=== PATIENT | male | born 1985 | race Caucasian/White ===

== ENCOUNTER 2021-06-17 17:23 | Inpatient (IN) ==
[2021-06-17] MEDS ORDERED: diazePAM 10 MG/2 ML SYRINGE IVP ONE (17:41)
[2021-06-17] MEDS ORDERED: Ondansetron 4 MG/2 ML VIAL IVP PRN (17:42)
[2021-06-17] MEDS ORDERED: 0.9 % Sodium Chloride 1,000 ML IVC ONE (17:42)
[2021-06-17] MEDS ORDERED: Naloxone 0.4 MG/ML INJ IVP PRN (17:42)
[2021-06-17] MEDS ORDERED: diazePAM 10 MG/2 ML SYRINGE IVP PRN ×4 (17:43)
[2021-06-17 18:06] LABS: Basophils % 0.3 %; Eosinophils % 0.4 %; Hematocrit 30.9 % (37.5-50.1); Hemoglobin 11.3 g/dL (12.9-16.9); Immature Granulocytes % 0.5 % (0-4); Lymphocytes # 1.2 K/mcL (0.6-4.6); Lymphocytes % 11.4 %; Mean Corpuscular HGB Conc 36.6 g/dL (31.6-35.5); Mean Corpuscular Volume 101.3 fL (83.0-100.0); Mean Platelet Volume 9.8 fL (9.4-12.4); Monocytes % 9.3 %; Neutrophils # 8.1 K/mcL (1.6-8.9); Platelet Count 111 K/mcL (140-400); Red Blood Count 3.05 M/mcL (4.19-5.50); Red Cell Distribution Width 15.7 % (11.5-14.5); Segmented Neutrophils % 78.1 %; White Blood Count 10.3 K/mcL (4.3-11.1)
[2021-06-17 18:26] LABS: Alanine Aminotransferase 28 Units/L (7-52); Albumin 2.2 g/dL (3.5-5.7); Albumin/Globulin Ratio 0.4 (1.1-2.2); Alkaline Phosphatase 102 Units/L (34-104); Aspartate Amino Transferase 149 Units/L (13-39); BUN/Creatinine Ratio 9 (6-26); Bilirubin,Total 16.1 mg/dL (0.3-1.0); Blood Urea Nitrogen 8 mg/dL (6-20); Calcium 8.3 mg/dL (8.6-10.3); Carbon Dioxide 32 mEq/L (23-29); Chloride 89 mEq/L (98-107); Globulin 5.9 g/dL (2.4-3.5); Glucose 107 mg/dL (70-105); Osmolality,Calculated 271 (280-300); Potassium 3.1 mEq/L (3.5-5.1); Sodium 131 mEq/L (136-145); Total Protein 8.1 g/dL (6.4-8.9); eGFR For African Americans > 60 (> 60); eGFR For Non-African Americans > 60 (> 60)
[2021-06-17 19:25] LABS: INR 2.7; Prothrombin Time 30.1 Seconds (9.4-12.1)
[2021-06-17 20:05] LABS: Hepatitis B Surface Antigen Nonreactive (Nonreactive)
[2021-06-17 20:37] LABS: Hepatitis A Antibody IgM Nonreactive (Nonreactive); Hepatitis C Virus Antibody Nonreactive (Nonreactive)
[2021-06-17 20:38] LABS: Hepatitis B Core IgM Nonreactive (Nonreactive)
[2021-06-17] MEDS: Thiamine (B-1) 100 MG, Folic Acid 1 MG, MVI, adult with vitamin K 10 ML in 0.9 % Sodi... IVPB SCH (20:58)
[2021-06-17] MEDS ORDERED: Potassium Chloride 20 MEQ, Lidocaine 1% 2 ML in 0.9 % Sodium Chloride 250 ML IVPB ONE (21:10)
[2021-06-17 21:44] LABS: Amorphous Sediment,Urine Few per hpf (None-Few); Bacteria,Urine Few per hpf (None-Few); Clarity,Urine Ex.Turbid (Clear); Color,Urine Dark-Orange (Yellow); Hyaline Casts,Urine Many per lpf (None Seen); Mucus,Urine Many per lpf (None-Few); RBC,Urine 0-3 per hpf (0-3); Renal Epithelial Cells,Urine Moderate per hpf (None-Few); Squamous Epithelial Cell,Urine Moderate per hpf (None-Few); WBC,Urine 30-50 per hpf (0-3)
[2021-06-17] MEDS: 0.9 % Sodium Chloride 1,000 ML IVC SCH (22:00)
[2021-06-17] MEDS: Pantoprazole 40 MG VIAL IVP SCH (22:09)
[2021-06-18 05:25] LABS: Basophils % 0.5 %; Eosinophils # 0.1 K/mcL (0.0-0.6); Eosinophils % 0.6 %; Hemoglobin 10.2 g/dL (12.9-16.9); Immature Granulocytes % 0.5 % (0-4); Lymphocytes % 11.9 %; Mean Corpuscular HGB Conc 36.4 g/dL (31.6-35.5); Mean Corpuscular Hemoglobin 37.1 pg (28.0-33.3); Mean Corpuscular Volume 101.8 fL (83.0-100.0); Mean Platelet Volume 9.9 fL (9.4-12.4); Monocytes # 0.8 K/mcL (0.0-1.3); Monocytes % 9.3 %; Neutrophils # 6.3 K/mcL (1.6-8.9); Platelet Count 111 K/mcL (140-400); Red Blood Count 2.75 M/mcL (4.19-5.50); Segmented Neutrophils % 77.2 %; White Blood Count 8.1 K/mcL (4.3-11.1)
[2021-06-18 05:40] LABS: Albumin 1.9 g/dL (3.5-5.7); Albumin/Globulin Ratio 0.4 (1.1-2.2); Bilirubin,Direct 8.1 mg/dL (0.0-0.2); Bilirubin,Total 15.1 mg/dL (0.3-1.0); Globulin 5.3 g/dL (2.4-3.5); Total Protein 7.2 g/dL (6.4-8.9)
[2021-06-18 05:50] LABS: BUN/Creatinine Ratio 11 (6-26); Blood Urea Nitrogen 8 mg/dL (6-20); Calcium 7.7 mg/dL (8.6-10.3); Carbon Dioxide 28 mEq/L (23-29); Chloride 94 mEq/L (98-107); Glucose 78 mg/dL (70-105); Magnesium 1.2 mg/dL (1.6-2.6); Osmolality,Calculated 271 (280-300); Phosphorous 2.8 mg/dL (2.7-4.5); Potassium 3.2 mEq/L (3.5-5.1); Sodium 132 mEq/L (136-145); eGFR For African Americans > 60 (> 60); eGFR For Non-African Americans > 60 (> 60)
[2021-06-18] MEDS: Nicotine 2 MG GUM BC PRN ×3 (06:37→21:48)
[2021-06-18] MEDS: Pantoprazole 40 MG VIAL IVP SCH ×2 (06:37→18:00)
[2021-06-18] MEDS: 0.9 % Sodium Chloride 1,000 ML IVC SCH ×3 (07:29→18:01)
[2021-06-18] MEDS ORDERED: Potassium Chloride 40 MEQ, Lidocaine 1% 2 ML in 0.9 % Sodium Chloride 500 ML IVPB ONE (07:57)
[2021-06-18] MEDS ORDERED: Thiamine (B-1) 200 MG in 0.9 % Sodium Chloride 50 ML IVPB SCH (09:00)
[2021-06-18] MEDS ORDERED: Folic Acid 1 MG in 0.9 % Sodium Chloride 50 ML IVPB SCH (09:00)
[2021-06-18] MEDS: diazePAM 10 MG/2 ML SYRINGE IVP PRN (10:41)
[2021-06-18] MEDS ORDERED: Lidocaine -MPF 2% 2 ML VIAL ONE (12:40)
[2021-06-18] MEDS ORDERED: *HR* Propofol 200 MG/20 ML VIAL IVP ONE (12:40)
[2021-06-18] MEDS ORDERED: *HR* Succinylcholine 200 MG/10 ML VIAL IVP ONE (13:02)
[2021-06-18] MEDS ORDERED: *HR* Midazolam HCl 2 MG/2 ML VIAL ONE (13:02)
[2021-06-18] MEDS ORDERED: Ondansetron 4 MG/2 ML VIAL ONE (13:03)
[2021-06-18] MEDS ORDERED: *HR* FentaNYL (PF) 100 MCG/2 ML VIAL ONE (13:04)
[2021-06-18] MEDS ORDERED: MethylPREDNISolone 40 MG/ML VIAL IVP SCH (13:15)
[2021-06-18 13:16] LABS: Clarity,Urine Hazy (Clear); Color,Urine Dark Brown (Yellow)
[2021-06-18 13:20] LABS: Squamous Epithelial Cell,Urine Few per hpf (None-Few)
[2021-06-18 13:21] LABS: Mucus,Urine Few per lpf (None-Few)
[2021-06-18 13:25] LABS: Amorphous Sediment,Urine Few per hpf (None-Few)
[2021-06-18] MEDS ORDERED: *HR* Midazolam HCl 5 MG/5 ML VIAL IVP ONE (13:27)
[2021-06-18] MEDS: Albumin 25% 25gram/100mL 25 GM/100 ML IV.SOLN IVPB SCH (14:58)
[2021-06-18] MEDS: methylPREDNISolone 125 MG/2 ML VIAL IVP SCH (16:35)
[2021-06-18 16:41] LABS: Alanine Aminotransferase 27 Units/L (7-52); Albumin 2.1 g/dL (3.5-5.7); Albumin/Globulin Ratio 0.4 (1.1-2.2); Alkaline Phosphatase 90 Units/L (34-104); Aspartate Amino Transferase 148 Units/L (13-39); BUN/Creatinine Ratio 11 (6-26); Bilirubin,Total 16.7 mg/dL (0.3-1.0); Blood Urea Nitrogen 10 mg/dL (6-20); Carbon Dioxide 25 mEq/L (23-29); Chloride 95 mEq/L (98-107); Globulin 5.4 g/dL (2.4-3.5); Glucose 142 mg/dL (70-105); Osmolality,Calculated 271 (280-300); Sodium 130 mEq/L (136-145); Total Protein 7.5 g/dL (6.4-8.9); eGFR For African Americans > 60 (> 60); eGFR For Non-African Americans > 60 (> 60)
[2021-06-18] MEDS: Thiamine (B-1) 100 MG, Folic Acid 1 MG, MVI, adult with vitamin K 10 ML in 0.9 % Sodi... IVPB SCH (18:00)
[2021-06-19] MEDS: Albumin 25% 25gram/100mL 25 GM/100 ML IV.SOLN IVPB SCH ×2 (01:48→11:38)
[2021-06-19 02:39] LABS: Basophils % 0.1 %; Hematocrit 30.2 % (37.5-50.1); Hemoglobin 10.6 g/dL (12.9-16.9); Immature Granulocytes % 0.2 % (0-4); Lymphocytes # 0.4 K/mcL (0.6-4.6); Lymphocytes % 4.2 %; Mean Corpuscular HGB Conc 35.1 g/dL (31.6-35.5); Mean Corpuscular Hemoglobin 36.4 pg (28.0-33.3); Mean Corpuscular Volume 103.8 fL (83.0-100.0); Mean Platelet Volume 9.6 fL (9.4-12.4); Monocytes # 0.2 K/mcL (0.0-1.3); Monocytes % 2.2 %; Neutrophils # 8.7 K/mcL (1.6-8.9); Platelet Count 117 K/mcL (140-400); Red Blood Count 2.91 M/mcL (4.19-5.50); Red Cell Distribution Width 15.9 % (11.5-14.5); Segmented Neutrophils % 93.3 %; White Blood Count 9.4 K/mcL (4.3-11.1)
[2021-06-19 02:58] LABS: Alanine Aminotransferase 29 Units/L (7-52); Albumin 2.2 g/dL (3.5-5.7); Albumin/Globulin Ratio 0.4 (1.1-2.2); Alkaline Phosphatase 87 Units/L (34-104); Aspartate Amino Transferase 141 Units/L (13-39); BUN/Creatinine Ratio 12 (6-26); Bilirubin,Total 16.9 mg/dL (0.3-1.0); Blood Urea Nitrogen 10 mg/dL (6-20); Carbon Dioxide 25 mEq/L (23-29); Chloride 97 mEq/L (98-107); Globulin 5.4 g/dL (2.4-3.5); Glucose 143 mg/dL (70-105); Osmolality,Calculated 276 (280-300); Potassium 3.5 mEq/L (3.5-5.1); Sodium 132 mEq/L (136-145); Total Protein 7.6 g/dL (6.4-8.9); eGFR For African Americans > 60 (> 60); eGFR For Non-African Americans > 60 (> 60)
[2021-06-19] MEDS: Nicotine 2 MG GUM BC PRN (03:59)
[2021-06-19] MEDS: 0.9 % Sodium Chloride 1,000 ML IVC SCH ×4 (04:00→20:54)
[2021-06-19] MEDS: diazePAM 10 MG/2 ML SYRINGE IVP PRN (04:01)
[2021-06-19] MEDS: Pantoprazole 40 MG VIAL IVP SCH ×2 (05:07→16:45)
[2021-06-19] MEDS: methylPREDNISolone 125 MG/2 ML VIAL IVP SCH (08:26)
[2021-06-19] MEDS ORDERED: MethylPREDNISolone 40 MG/ML VIAL IVP STA (09:30)
[2021-06-19] MEDS: Thiamine (B-1) 100 MG, Folic Acid 1 MG, MVI, adult with vitamin K 10 ML in 0.9 % Sodi... IVPB SCH (16:45)
[2021-06-20] MEDS: Albumin 25% 25gram/100mL 25 GM/100 ML IV.SOLN IVPB SCH ×2 (03:02→11:54)
[2021-06-20 03:47] LABS: Alanine Aminotransferase 34 Units/L (7-52); Albumin 2.3 g/dL (3.5-5.7); Albumin/Globulin Ratio 0.5 (1.1-2.2); Aspartate Amino Transferase 126 Units/L (13-39); BUN/Creatinine Ratio 15 (6-26); Bilirubin,Total 14.3 mg/dL (0.3-1.0); Blood Urea Nitrogen 10 mg/dL (6-20); Calcium 8.4 mg/dL (8.6-10.3); Carbon Dioxide 24 mEq/L (23-29); Chloride 103 mEq/L (98-107); Globulin 5.1 g/dL (2.4-3.5); Glucose 138 mg/dL (70-105); Osmolality,Calculated 283 (280-300); Potassium 3.6 mEq/L (3.5-5.1); Sodium 136 mEq/L (136-145); Total Protein 7.4 g/dL (6.4-8.9); eGFR For African Americans > 60 (> 60); eGFR For Non-African Americans > 60 (> 60)
[2021-06-20 04:01] LABS: Alkaline Phosphatase 92 Units/L (34-104)
[2021-06-20] MEDS: Nicotine 2 MG GUM BC PRN ×2 (04:50→21:46)
[2021-06-20] MEDS: Pantoprazole 40 MG VIAL IVP SCH ×2 (04:51→16:42)
[2021-06-20] MEDS: 0.9 % Sodium Chloride 1,000 ML IVC SCH ×3 (04:51→21:45)
[2021-06-20] MEDS: methylPREDNISolone 125 MG/2 ML VIAL IVP SCH (07:34)
[2021-06-20 10:27] LABS: Basophils % 0.1 %; Hematocrit 28.9 % (37.5-50.1); Immature Granulocytes % 0.7 % (0-4); Lymphocytes # 0.4 K/mcL (0.6-4.6); Mean Corpuscular HGB Conc 34.6 g/dL (31.6-35.5); Mean Corpuscular Hemoglobin 36.4 pg (28.0-33.3); Mean Corpuscular Volume 105.1 fL (83.0-100.0); Mean Platelet Volume 10.1 fL (9.4-12.4); Monocytes # 0.8 K/mcL (0.0-1.3); Monocytes % 5.8 %; Neutrophils # 12.4 K/mcL (1.6-8.9); Platelet Count 163 K/mcL (140-400); Red Blood Count 2.75 M/mcL (4.19-5.50); Red Cell Distribution Width 16.5 % (11.5-14.5); Segmented Neutrophils % 90.4 %; White Blood Count 13.7 K/mcL (4.3-11.1)
[2021-06-20] MEDS: Folic Acid 1 MG TABLET PO SCH (10:40)
[2021-06-20] MEDS: Vitamin B Complex/Vit C/Vit E 1 EACH TABLET PO SCH (10:40)
[2021-06-20] MEDS: Thiamine (B-1) 100 MG TABLET PO SCH (10:41)
[2021-06-20 11:41] LABS: INR 2.8; Prothrombin Time 31.1 Seconds (9.4-12.1)
[2021-06-21] MEDS: Albumin 25% 25gram/100mL 25 GM/100 ML IV.SOLN IVPB SCH ×2 (01:09→11:21)
[2021-06-21 05:42] LABS: Basophils % 0.1 %; Hematocrit 29.9 % (37.5-50.1); Hemoglobin 10.6 g/dL (12.9-16.9); Lymphocytes # 0.5 K/mcL (0.6-4.6); Lymphocytes % 3.7 %; Mean Corpuscular HGB Conc 35.5 g/dL (31.6-35.5); Mean Corpuscular Hemoglobin 37.1 pg (28.0-33.3); Mean Corpuscular Volume 104.5 fL (83.0-100.0); Mean Platelet Volume 9.9 fL (9.4-12.4); Monocytes # 1.1 K/mcL (0.0-1.3); Monocytes % 7.7 %; Neutrophils # 12.7 K/mcL (1.6-8.9); Platelet Count 189 K/mcL (140-400); Red Blood Count 2.86 M/mcL (4.19-5.50); Red Cell Distribution Width 16.8 % (11.5-14.5); Segmented Neutrophils % 87.5 %
[2021-06-21 05:53] LABS: INR 2.4; Prothrombin Time 27.3 Seconds (9.4-12.1)
[2021-06-21] MEDS: Pantoprazole 40 MG VIAL IVP SCH (05:56)
[2021-06-21 05:58] LABS: Alanine Aminotransferase 48 Units/L (7-52); Albumin/Globulin Ratio 0.7 (1.1-2.2); Alkaline Phosphatase 89 Units/L (34-104); Aspartate Amino Transferase 130 Units/L (13-39); BUN/Creatinine Ratio 19 (6-26); Bilirubin,Total 14.5 mg/dL (0.3-1.0); Blood Urea Nitrogen 13 mg/dL (6-20); Calcium 9.1 mg/dL (8.6-10.3); Carbon Dioxide 23 mEq/L (23-29); Chloride 104 mEq/L (98-107); Globulin 4.6 g/dL (2.4-3.5); Glucose 126 mg/dL (70-105); Osmolality,Calculated 282 (280-300); Potassium 3.7 mEq/L (3.5-5.1); Sodium 135 mEq/L (136-145); Total Protein 7.6 g/dL (6.4-8.9); eGFR For African Americans > 60 (> 60); eGFR For Non-African Americans > 60 (> 60)
[2021-06-21 06:00] LABS: Albumin 3.1 g/dL (3.5-5.7); Albumin/Globulin Ratio 0.7 (1.1-2.2); Bilirubin,Direct 7.9 mg/dL (0.0-0.2); Bilirubin,Indirect 6.5 mg/dL (0.0-1.0); Bilirubin,Total 14.4 mg/dL (0.3-1.0); Globulin 4.5 g/dL (2.4-3.5); Total Protein 7.6 g/dL (6.4-8.9)
[2021-06-21 06:01] LABS: White Blood Count 14.5 K/mcL (4.3-11.1)
[2021-06-21 06:47] VITALS: BP 139/95; PULSE 104; TEMP 97.8; O2SAT 95
[2021-06-21] MEDS: Vitamin B Complex/Vit C/Vit E 1 EACH TABLET PO SCH (07:56)
[2021-06-21] MEDS: Thiamine (B-1) 100 MG TABLET PO SCH (07:56)
[2021-06-21] MEDS: 0.9 % Sodium Chloride 1,000 ML IVC SCH (07:56)
[2021-06-21] MEDS: Folic Acid 1 MG TABLET PO SCH (07:56)
[2021-06-21] MEDS: methylPREDNISolone 125 MG/2 ML VIAL IVP SCH (07:56)
== END 2021-06-21 13:26 | disposition home or self-care (01) | DRG 432 ==
LOC: 3BNU 17:23 → EMEROOARM 17:23 → SUATTDRO 19:57 → 3BNU 20:25
PROVIDERS: ADMIT Student in an Organized Health Care Education/Training Program; ATTEND Family Medicine

== ENCOUNTER 2021-07-20 15:17 | Inpatient (IN) ==
[2021-07-20] MEDS ORDERED: Isovue-370 500 ML BOTTLE IVP ONE (16:03)
[2021-07-20 16:38] LABS: INR 2.5; Prothrombin Time 28.1 Seconds (9.4-12.1)
[2021-07-20 16:40] LABS: Activated Partial Thrombo Time 42.4 Seconds (26.0-36.0)
[2021-07-20 16:54] LABS: Basophils % 0.2 %; Eosinophils % 0.2 %; Immature Granulocytes % 0.7 % (0-4); Mean Platelet Volume 10.1 fL (9.4-12.4); Monocytes % 5.6 %; Red Cell Distribution Width 13.9 % (11.5-14.5)
[2021-07-20 16:56] LABS: Hematocrit 36.4 % (37.5-50.1); Immature Platelets 4.6 % (1.1-6.1); Lymphocytes # 0.9 K/mcL (0.6-4.6); Lymphocytes % 4.5 %; Mean Corpuscular HGB Conc 35.7 g/dL (31.6-35.5); Mean Corpuscular Volume 103.7 fL (83.0-100.0); Monocytes # 1.1 K/mcL (0.0-1.3); Neutrophils # 17.1 K/mcL (1.6-8.9); Platelet Count 129 K/mcL (140-400); Red Blood Count 3.51 M/mcL (4.19-5.50); Segmented Neutrophils % 88.8 %; White Blood Count 19.2 K/mcL (4.3-11.1)
[2021-07-20 17:10] LABS: Alanine Aminotransferase 34 Units/L (7-52); Albumin 2.3 g/dL (3.5-5.7); Albumin/Globulin Ratio 0.5 (1.1-2.2); Alkaline Phosphatase 145 Units/L (34-104); Aspartate Amino Transferase 83 Units/L (13-39); BUN/Creatinine Ratio 14 (6-26); Bilirubin,Direct 6.3 mg/dL (0.0-0.2); Bilirubin,Indirect 5.8 mg/dL (0.0-1.0); Bilirubin,Total 12.1 mg/dL (0.3-1.0); Blood Urea Nitrogen 10 mg/dL (6-20); C-Reactive Protein 96 mg/L (Less than 10); Calcium 7.8 mg/dL (8.6-10.3); Carbon Dioxide 23 mEq/L (23-29); Chloride 96 mEq/L (98-107); Ethanol < 10 mg/dL (Less than 10); Ferritin 909 ng/mL (20-250); Globulin 4.5 g/dL (2.4-3.5); Glucose 101 mg/dL (70-105); Lipase 82 Units/L (11-82); Magnesium 1.7 mg/dL (1.6-2.6); Osmolality,Calculated 267 (280-300); Potassium 3.3 mEq/L (3.5-5.1); Sodium 129 mEq/L (136-145); Total Protein 6.8 g/dL (6.4-8.9); eGFR For African Americans > 60 (> 60); eGFR For Non-African Americans > 60 (> 60)
[2021-07-20 17:11] LABS: Troponin I 0.06 ng/mL (< 0.04)
[2021-07-20 17:52] LABS: Amorphous Sediment,Urine Few per hpf (None-Few); Bilirubin,Urine Large (Negative); Blood,Urine Small (Negative); Clarity,Urine Turbid (Clear); Color,Urine Dark-Orange (Yellow); Glucose,Urine (UA) Normal (Normal); Hyaline Casts,Urine Few per lpf (None Seen); Ketones,Urine Negative (Negative); Leukocyte Esterase,Urine Negative (Negative); Mucus,Urine Few per lpf (None-Few); Nitrite,Urine Negative (Negative); Protein,Urine 50 mg/dL (Neg-Trace); RBC,Urine 0-3 per hpf (0-3); Specific Gravity,Urine > 1.030 (1.010-1.025); Squamous Epithelial Cell,Urine Few per hpf (None-Few)
[2021-07-20] MEDS ORDERED: 0.9 % Sodium Chloride 500 ML IVC ONE (17:54)
[2021-07-20] MEDS ORDERED: Piperacillin/Tazobactam 3.375 GM in Water for inj. (sterile) 20 ML IVP ONE ×2 (17:54→18:06)
[2021-07-20] MEDS ORDERED: Vancomycin 1,500 MG/265 ML IV.SOLN IVPB ONE (18:00)
[2021-07-20] MEDS ORDERED: Naloxone 0.4 MG/ML INJ IVP PRN ×2 (18:28→22:21)
[2021-07-20] MEDS ORDERED: Ringers Solution, Lactated 1,000 ML IVC SCH ×2 (18:30→22:30)
[2021-07-20 19:28] LABS: VBG HCO3 25 mEq/L (21-27); VBG PCO2 43 mmHg (41-51); VBG PH 7.37 pH Units (7.32-7.42); VBG PO2 48 mmHg (25-50)
[2021-07-20 19:32] LABS: Acetaminophen < 10 mcg/mL (10-20); Salicylate < 2.5 mg/dL (15.0-30.0)
[2021-07-20] MEDS: Ondansetron 4 MG/2 ML VIAL IVP PRN (21:51)
[2021-07-20] MEDS ORDERED: Melatonin 3 MG TABLET PO PRN (22:21)
[2021-07-20] MEDS ORDERED: Ondansetron 4 MG/2 ML VIAL IVP PRN (22:21)
[2021-07-20] MEDS ORDERED: Isovue-370 500 ML BOTTLE PO ONE (23:20)
[2021-07-20] MEDS: Piperacillin/Tazobactam 3.375 GM in 0.9 % Sodium Chloride Mini Bag 100 ML IVPB SCH (23:40)
[2021-07-21] MEDS: *HR* Enoxaparin 40 MG/0.4 ML SYRINGE SQ SCH (06:07)
[2021-07-21] MEDS: Ondansetron 4 MG/2 ML VIAL IVP PRN (06:16)
[2021-07-21 06:39] LABS: Eosinophils % 0.3 %
[2021-07-21 06:41] LABS: Basophils % 0.2 %; Eosinophils # 0.1 K/mcL (0.0-0.6); Hematocrit 32.9 % (37.5-50.1); Hemoglobin 11.6 g/dL (12.9-16.9); Immature Granulocytes % 0.9 % (0-4); Immature Platelets 4.6 % (1.1-6.1); Lymphocytes # 1.1 K/mcL (0.6-4.6); Lymphocytes % 7.3 %; Mean Corpuscular HGB Conc 35.3 g/dL (31.6-35.5); Mean Corpuscular Hemoglobin 37.2 pg (28.0-33.3); Mean Corpuscular Volume 105.4 fL (83.0-100.0); Mean Platelet Volume 10.1 fL (9.4-12.4); Monocytes # 0.9 K/mcL (0.0-1.3); Monocytes % 5.9 %; Nucleated Red Blood Cells 0.1 /100 WBC (0); Platelet Count 129 K/mcL (140-400); Red Blood Count 3.12 M/mcL (4.19-5.50); Segmented Neutrophils % 85.4 %; White Blood Count 15.2 K/mcL (4.3-11.1)
[2021-07-21 06:55] LABS: Magnesium 1.6 mg/dL (1.6-2.6)
[2021-07-21 06:56] LABS: Alanine Aminotransferase 25 Units/L (7-52); Albumin/Globulin Ratio 0.6 (1.1-2.2); Alkaline Phosphatase 118 Units/L (34-104); Aspartate Amino Transferase 62 Units/L (13-39); BUN/Creatinine Ratio 14 (6-26); Bilirubin,Total 10.2 mg/dL (0.3-1.0); Blood Urea Nitrogen 9 mg/dL (6-20); Calcium 7.5 mg/dL (8.6-10.3); Carbon Dioxide 25 mEq/L (23-29); Chloride 98 mEq/L (98-107); Globulin 3.5 g/dL (2.4-3.5); Glucose 100 mg/dL (70-105); Osmolality,Calculated 265 (280-300); Potassium 3.3 mEq/L (3.5-5.1); Sodium 128 mEq/L (136-145); Total Protein 5.5 g/dL (6.4-8.9); eGFR For African Americans > 60 (> 60); eGFR For Non-African Americans > 60 (> 60)
[2021-07-21] MEDS ORDERED: Calcium Gluconate 1gm/50mL 1 GM/50 ML BAG IVPB SCH (08:00)
[2021-07-21] MEDS: Vancomycin 1,500 MG/265 ML IV.SOLN IVPB SCH ×2 (09:38→22:05)
[2021-07-21] MEDS: Chlorhexidine Rinse 15 ML MOUTHWASH MM SCH ×2 (09:39→22:05)
[2021-07-21] MEDS: Piperacillin/Tazobactam 3.375 GM in 0.9 % Sodium Chloride Mini Bag 100 ML IVPB SCH ×2 (09:42→16:58)
[2021-07-21] MEDS: Pantoprazole 40 MG VIAL IVP SCH (09:43)
[2021-07-21] MEDS: Cholecalciferol (D-3) 1,000 UNIT (25MCG) TABLET PO SCH (09:43)
[2021-07-21] MEDS: Ipratropium 1 PUFF INHALER IH SCH ×3 (11:15→20:49)
[2021-07-21 12:47] LABS: INR 2.8; Prothrombin Time 30.6 Seconds (9.4-12.1)
[2021-07-21] MEDS: Albumin 25% 25gram/100mL 25 GM/100 ML IV.SOLN IVPB SCH ×2 (13:22→14:55)
[2021-07-21] MEDS ORDERED: diazePAM 10 MG/2 ML SYRINGE IVP PRN ×3 (16:30)
[2021-07-21] MEDS ORDERED: MethylPREDNISolone 40 MG/ML VIAL IVP SCH (18:34)
[2021-07-21 18:39] LABS: Amylase 46 Units/L (29-103); Ethanol < 10 mg/dL (Less than 10); Lipase 139 Units/L (11-82)
[2021-07-21 19:36] LABS: Adenovirus Not Detected (Not Detect); Bordetella Pertussis Not Detected (Not Detect); Chlamydophila pneumoniae Not Detected (Not Detect); Coronavirus 229E Not Detected (Not Detect); Coronavirus HKU1 Not Detected (Not Detect); Coronavirus NL63 Not Detected (Not Detect); Coronavirus OC43 Not Detected (Not Detect); Human Metapneumovirus Not Detected (Not Detect); Human Rhinovirus/Enterovirus Not Detected (Not Detect); Influenza A Subtype 2009 H1 Not Detected (Not Detect); Influenza B Not Detected (Not Detect); Mycoplasma pneumoniae Not Detected (Not Detect); Parainfluenza Virus 1 Not Detected (Not Detect); Parainfluenza Virus 2 Not Detected (Not Detect); Parainfluenza Virus 3 Not Detected (Not Detect); Parainfluenza Virus 4 Not Detected (Not Detect); Respiratory Syncytial Virus Not Detected (Not Detect); SARS-CoV-2 DETECTED (Not Detect)
[2021-07-22] MEDS: Piperacillin/Tazobactam 3.375 GM in 0.9 % Sodium Chloride Mini Bag 100 ML IVPB SCH ×3 (00:34→17:57)
[2021-07-22] MEDS: Ipratropium 1 PUFF INHALER IH SCH ×4 (03:48→21:05)
[2021-07-22] MEDS: *HR* Enoxaparin 40 MG/0.4 ML SYRINGE SQ SCH (06:24)
[2021-07-22] MEDS: Vancomycin 1,500 MG/265 ML IV.SOLN IVPB SCH (06:24)
[2021-07-22 06:31] LABS: Basophils % 0.1 %; Hemoglobin 11.3 g/dL (12.9-16.9); INR 2.9; Prothrombin Time 32.4 Seconds (9.4-12.1); Red Cell Distribution Width 13.6 % (11.5-14.5)
[2021-07-22 06:32] LABS: Alanine Aminotransferase 21 Units/L (7-52); Albumin 2.4 g/dL (3.5-5.7); Albumin/Globulin Ratio 0.7 (1.1-2.2); Alkaline Phosphatase 116 Units/L (34-104); Aspartate Amino Transferase 41 Units/L (13-39); BUN/Creatinine Ratio 17 (6-26); Blood Urea Nitrogen 9 mg/dL (6-20); Calcium 8.1 mg/dL (8.6-10.3); Carbon Dioxide 25 mEq/L (23-29); Chloride 101 mEq/L (98-107); Globulin 3.3 g/dL (2.4-3.5); Glucose 137 mg/dL (70-105); Magnesium 1.8 mg/dL (1.6-2.6); Osmolality,Calculated 273 (280-300); Phosphorous 2.1 mg/dL (2.7-4.5); Potassium 3.5 mEq/L (3.5-5.1); Sodium 131 mEq/L (136-145); Total Protein 5.7 g/dL (6.4-8.9); eGFR For African Americans > 60 (> 60); eGFR For Non-African Americans > 60 (> 60)
[2021-07-22 06:34] LABS: Hematocrit 31.1 % (37.5-50.1); Immature Granulocytes % 0.6 % (0-4); Immature Platelets 4.6 % (1.1-6.1); Lymphocytes # 0.5 K/mcL (0.6-4.6); Lymphocytes % 6.2 %; Mean Corpuscular HGB Conc 36.3 g/dL (31.6-35.5); Mean Corpuscular Hemoglobin 37.7 pg (28.0-33.3); Mean Corpuscular Volume 103.7 fL (83.0-100.0); Monocytes # 0.3 K/mcL (0.0-1.3); Monocytes % 4.3 %; Platelet Count 132 K/mcL (140-400); Segmented Neutrophils % 88.8 %; White Blood Count 7.9 K/mcL (4.3-11.1)
[2021-07-22] MEDS ORDERED: Multivit/Ca/Min/Fe/FA 1 TAB TABLET PO SCH (09:00)
[2021-07-22] MEDS ORDERED: Spironolactone 25 MG TABLET PO SCH (09:00)
[2021-07-22] MEDS: Nicotine 2 MG GUM BC SCH (09:16)
[2021-07-22] MEDS: Cyanocobalamin (B-12) 1,000 MCG TABLET PO SCH (09:17)
[2021-07-22] MEDS: Cholecalciferol (D-3) 1,000 UNIT (25MCG) TABLET PO SCH (09:17)
[2021-07-22] MEDS: Thiamine (B-1) 100 MG TABLET PO SCH (09:17)
[2021-07-22] MEDS: Furosemide 40 MG TABLET PO SCH (09:17)
[2021-07-22] MEDS: Chlorhexidine Rinse 15 ML MOUTHWASH MM SCH (09:17)
[2021-07-22] MEDS: Vitamin B Complex/Vit C/Vit E 1 EACH TABLET PO SCH (09:17)
[2021-07-22] MEDS: Folic Acid 1 MG TABLET PO SCH (09:18)
[2021-07-22] MEDS: Pantoprazole 40 MG VIAL IVP SCH (09:18)
[2021-07-22] MEDS: Nicotine 14 MG PATCH.TD24 TD SCH (09:20)
[2021-07-22] MEDS ORDERED: Spironolactone 25 MG TABLET PO ONE (10:00)
[2021-07-22] MEDS: Albumin 25% 25gram/100mL 25 GM/100 ML IV.SOLN IVPB SCH ×2 (14:04→16:04)
[2021-07-22 16:22] LABS: Glucose,Peritoneal Fluid 120 mg/dL (No Ref Range); LDH,Peritoneal Fluid 35 Units/L (No Ref Range); Total Protein,Peritoneal Fluid < 2.0 g/dL
[2021-07-22 16:24] LABS: RBC,Peritoneal Fluid < 2000 RBC/mcL
[2021-07-22 18:19] LABS: Appearance of Peritoneal Fl CLEAR (Clear)
[2021-07-22 18:24] LABS: Basophils,Peritoneal Fluid 0 %; Eosinophils,Peritoneal Fluid 0 %
[2021-07-22] MEDS ORDERED: Vancomycin 1,750 MG/517.5 ML IV.SOLN IVPB SCH (19:00)
[2021-07-23] MEDS: Ipratropium 1 PUFF INHALER IH SCH ×3 (03:27→17:30)
[2021-07-23] MEDS: Chlorhexidine Rinse 15 ML MOUTHWASH MM SCH ×2 (05:32→09:43)
[2021-07-23] MEDS ORDERED: Piperacillin/Tazobactam 3.375 GM in 0.9 % Sodium Chloride Mini Bag 100 ML IVPB SCH (06:00)
[2021-07-23 07:00] VITALS: BP 127/89; PULSE 91; TEMP 97.7
[2021-07-23 08:54] LABS: Basophils % 0.1 %; Hemoglobin 10.9 g/dL (12.9-16.9); Mean Platelet Volume 10.1 fL (9.4-12.4)
[2021-07-23 08:56] LABS: Hematocrit 30.8 % (37.5-50.1); Immature Granulocytes % 0.7 % (0-4); Immature Platelets 4.5 % (1.1-6.1); Lymphocytes # 0.7 K/mcL (0.6-4.6); Lymphocytes % 6.4 %; Mean Corpuscular HGB Conc 35.4 g/dL (31.6-35.5); Mean Corpuscular Hemoglobin 37.1 pg (28.0-33.3); Mean Corpuscular Volume 104.8 fL (83.0-100.0); Monocytes # 0.6 K/mcL (0.0-1.3); Monocytes % 4.9 %; Neutrophils # 9.9 K/mcL (1.6-8.9); Platelet Count 150 K/mcL (140-400); Red Blood Count 2.94 M/mcL (4.19-5.50); Red Cell Distribution Width 13.3 % (11.5-14.5); Segmented Neutrophils % 87.9 %; White Blood Count 11.3 K/mcL (4.3-11.1)
[2021-07-23] MEDS ORDERED: Spironolactone 25 MG TABLET PO SCH (09:00)
[2021-07-23 09:12] LABS: INR 2.6; Prothrombin Time 29.3 Seconds (9.4-12.1)
[2021-07-23 09:15] LABS: Alanine Aminotransferase 21 Units/L (7-52); Albumin 2.5 g/dL (3.5-5.7); Albumin/Globulin Ratio 0.9 (1.1-2.2); Alkaline Phosphatase 89 Units/L (34-104); Aspartate Amino Transferase 54 Units/L (13-39); Blood Urea Nitrogen 14 mg/dL (6-20); Calcium 8.2 mg/dL (8.6-10.3); Carbon Dioxide 24 mEq/L (23-29); Chloride 103 mEq/L (98-107); Globulin 2.8 g/dL (2.4-3.5); Glucose 130 mg/dL (70-105); Magnesium 1.4 mg/dL (1.6-2.6); Osmolality,Calculated 282 (280-300); Potassium 3.3 mEq/L (3.5-5.1); Sodium 135 mEq/L (136-145); Total Protein 5.3 g/dL (6.4-8.9)
[2021-07-23 09:22] LABS: BUN/Creatinine Ratio 26 (6-26); eGFR For African Americans > 60 (> 60); eGFR For Non-African Americans > 60 (> 60)
[2021-07-23] MEDS: Cholecalciferol (D-3) 1,000 UNIT (25MCG) TABLET PO SCH (09:44)
[2021-07-23] MEDS: Cyanocobalamin (B-12) 1,000 MCG TABLET PO SCH (09:44)
[2021-07-23] MEDS: Vitamin B Complex/Vit C/Vit E 1 EACH TABLET PO SCH (09:44)
[2021-07-23] MEDS: Nicotine 2 MG GUM BC SCH (09:44)
[2021-07-23] MEDS: Furosemide 40 MG TABLET PO SCH (09:45)
[2021-07-23] MEDS: Thiamine (B-1) 100 MG TABLET PO SCH (09:45)
[2021-07-23] MEDS: Folic Acid 1 MG TABLET PO SCH (09:45)
[2021-07-23] MEDS: Nicotine 14 MG PATCH.TD24 TD SCH (09:46)
[2021-07-23] MEDS: Albumin 25% 25gram/100mL 25 GM/100 ML IV.SOLN IVPB SCH ×2 (12:49→14:12)
[2021-07-23 12:51] VITALS: O2SAT 93
[2021-07-25 14:30] LABS: Fluid Source for Albumin PERITONEAL
== END 2021-07-23 18:20 | disposition home health service (06) | DRG 871 ==
LOC: 2NENU 15:17 → EMEROOARM 15:17 → 2NENU 20:19 → SUATTDRO 22:21
PROVIDERS: ADMIT Internal Medicine; ATTEND Family Medicine